=== PATIENT | male | born 1965 | race Caucasian/White ===

== ENCOUNTER → 2020-11-08 | Outpatient (CLI) | payer BC ==
[2020-11-08 08:34] LABS: HEMOGLOBIN 13.7 gm/dl (14.0-17.5); RED BLOOD COUNT 4.48 M/UL (4.20-5.50); WHITE BLOOD COUNT 6.7 K/UL (4.5-11.0)
[2020-11-08 08:59] LABS: BUN/CREATININE RATIO 12 (0-10)
== END ==
LOC: LAB 07:20
PROVIDERS: Legal Medicine
DX: I10 Essential (primary) hypertension (principal); E78.5 Hyperlipidemia, unspecified
CPT/HCPCS: 36415; 80053; 80061; 84443; 85027

== ENCOUNTER → 2021-07-07 | Outpatient (CLI) | payer BC ==
[2021-07-07 08:31] LABS: HEMOGLOBIN 13.8 gm/dl (14.0-17.5); RED BLOOD COUNT 4.53 M/UL (4.20-5.50); WHITE BLOOD COUNT 6.3 K/UL (4.5-11.0)
[2021-07-08 07:11] LABS: A/G RATIO 1.5 (1.2-2.2); ALKALINE PHOSPHATASE, S 73 IU/L (44-121); ALT (SGPT) 15 IU/L (0-44); AST (SGOT) 12 IU/L (0-40); BILIRUBIN, TOTAL 0.3 mg/dL (0.0-1.2); BUN 16 mg/dL (6-24); BUN/CREATININE RATIO 13 (9-20); CALCIUM, SERUM 8.8 mg/dL (8.7-10.2); CARBON DIOXIDE, TOTAL 22 mmol/L (20-29); CHLORIDE, SERUM 106 mmol/L (96-106); CREATININE, SERUM 1.24 mg/dL (0.76-1.27); EGFR IF AFRICN AM 75 (>59); EGFR IF NONAFRICN AM 65 (>59); GLOBULIN, TOTAL 2.8 g/dL (1.5-4.5); GLUCOSE, SERUM 106 mg/dL (65-99); POTASSIUM, SERUM 4.1 mmol/L (3.5-5.2); PROTEIN, TOTAL, SERUM 6.9 g/dL (6.0-8.5); SODIUM, SERUM 143 mmol/L (134-144)
[2021-07-08 08:15] LABS: CHOLESTEROL, TOTAL 203 mg/dL (100-199); HDL CHOLESTEROL 42 mg/dL (>39); LDL CHOLESTEROL CALC 124 mg/dL (0-99); T. CHOL/HDL RATIO 4.8 ratio (0.0-5.0); TRIGLYCERIDES 207 mg/dL (0-149)
== END ==
LOC: LAB 07:16
PROVIDERS: Legal Medicine
DX: I10 Essential (primary) hypertension (principal); E78.5 Hyperlipidemia, unspecified
CPT/HCPCS: 36415; 80053; 80061; 82043; 84443; 85027

== ENCOUNTER → 2021-09-26 | Outpatient (CLI) | payer BC | LOC: KOH-I 10:47 | DX: J33.9 Nasal polyp, unspecified (principal); J32.4 Chronic pansinusitis | CPT/HCPCS: 70486 ==